=== PATIENT | female | born 1960 | race Hispanic/Latino ===

== ENCOUNTER 2019-09-11 11:00 | Inpatient (IN) | payer OTHER ==
[~2019-09-11] VITALS: Ht 154.9 cm; Wt 74.7 kg
[2019-09-11 10:48] LABS: BASOPHILS % (AUTO) 0.6 % (0.0-5.0); EOSINOPHILS % (AUTO) 2.9 % (0.0-8.0); LYMPHOCYTES % (AUTO) 30.2 % (21.0-51.0); MEAN CORPUSCULAR HEMOGLOBIN 28.9 pg (27.0-33.0); MEAN CORPUSCULAR HGB CONC 32.4 g/dL (32.0-36.0); MEAN CORPUSCULAR VOLUME 89.4 fL (79-99); MONOCYTES % (AUTO) 7.7 % (3.0-13.0); NEUTROPHILS % (AUTO) 58.5 % (40.0-77.0); PLATELET COUNT (AUTO) 231 K/uL (130-400); RED CELL DISTRIBUTION WIDTH 14.1 % (11.0-15.5); WHITE BLOOD COUNT (AUTO) 8.4 K/uL (4.8-10.8)
[2019-09-11 10:49] LABS: APPEARANCE,URINE Clear (CLEAR); BILIRUBIN,URINE Negative (NEGATIVE); COLOR,URINE Yellow (YELLOW); GLUCOSE, URINE (UA) Negative (NEGATIVE); KETONES,URINE Negative (NEGATIVE); LEUKOCYTE ESTERASE ,URINE Negative (NEGATIVE); NITRATE,URINE Negative (NEGATIVE); OCCULT BLOOD,URINE Negative (NEGATIVE); PROTEIN,URINE Negative (NEGATIVE); UROBILINOGEN,URINE 0.2 mg/dL (0.2-1.0)
[2019-09-11 10:57] LABS: CREATININE 0.7 mg/dL (0.5-1.5); POTASSIUM 4.1 mmol/L (3.5-5.1)
[2019-09-11 10:58] LABS: INR 0.89 (0.85-1.15); PROTHROMBIN TIME 9.7 SEC (9.6-11.6)
[2019-09-13 10:46] VITALS: BP 157/94
[2019-09-13] MEDS ORDERED: TYLENOL ARTHRITIS PO (11:10)
[2019-09-13] MEDS ORDERED: IBUP-2784 PO (11:10)
[2019-09-14] VITALS (23 sets, daily range): BP systolic 105–137; BP diastolic 58–74
[2019-09-14] MEDS: CEFAZOLIN SODIUM 1 GM VIAL IVP SCH ×3 (05:00→21:16)
[2019-09-14] MEDS ORDERED: LACTATED RINGERS 1000ML 1,000 ML IV ONE (09:32)
[2019-09-14] MEDS ORDERED: METOCLOPRAMIDE 10 MG/2 ML VIAL ONE (10:30)
[2019-09-14] MEDS ORDERED: KETOROLAC TROMETHAMINE 15MG/ML ONE (10:31)
[2019-09-14] MEDS ORDERED: CELECOXIB 200 MG CAP ONE (10:31)
[2019-09-14] MEDS ORDERED: ACETAMINOPHEN EXTRA STRENGTH 500 MG TABLET ONE (10:31)
[2019-09-14] MEDS ORDERED: TRANEXAMIC ACID 1000MG/10ML ONE ×2 (11:08→16:18)
[2019-09-14] MEDS ORDERED: LIDOCAINE PF 2% 5ML ABBOJECT ONE (11:51)
[2019-09-14] MEDS ORDERED: SUCCINYLCHOLINE CHLORIDE 20 MG/ML 10 ML VIAL ONE ×2 (11:51→11:54)
[2019-09-14] MEDS ORDERED: ROCURONIUM 10MG/1ML SYR 10 MG/ML ML ONE ×2 (11:52→13:38)
[2019-09-14] MEDS ORDERED: MIDAZOLAM HCL 1 MG/ML 2ML VIAL ONE (11:52)
[2019-09-14] MEDS ORDERED: PROPOFOL 10 MG/ML 20ML VIAL IV ONE (11:52)
[2019-09-14] MEDS ORDERED: ROPIVACAINE 0.5% 5MG/ML 30ML IJ ONE (11:54)
[2019-09-14] MEDS ORDERED: SODIUM CHLORIDE 0.9% 10 ML VIAL ONE (12:09)
[2019-09-14] MEDS ORDERED: GLYCOPYRROLATE 1 MG/5 ML SYRINGE ONE (13:09)
[2019-09-14] MEDS ORDERED: CEFAZOLIN SODIUM 1 GM VIAL IRRIG ONE ×2 (13:10)
[2019-09-14] MEDS ORDERED: FENTANYL CITRATE PF 50 MCG/1 ML 2ML VIAL ONE (14:54)
[2019-09-14] MEDS ORDERED: NEOSTIGMINE 5MG/5ML SYR IV ONE (15:03)
[2019-09-14] MEDS ORDERED: ONDANSETRON HCL 4 MG/2 ML VIAL IVP PRN (15:30)
[2019-09-14] MEDS ORDERED: DiphenhydrAMINE HCL 50 MG/ML VIAL IVP PRN (15:30)
[2019-09-14] MEDS ORDERED: OXYCODONE HCL 5 MG TAB PO PRN (15:30)
[2019-09-14] MEDS ORDERED: CALCIUM CARBONATE 500 MG TABLET PO PRN (15:30)
[2019-09-14] MEDS ORDERED: TRAMADOL HCL 50 MG TABLET PO PRN (15:30)
[2019-09-14] MEDS ORDERED: POTASSIUM CHLORIDE 10% ELIXIR 20 MEQ/15 ML UDCUP PO PRN (15:30)
[2019-09-14] MEDS: ACETAMINOPHEN EXTRA STRENGTH 500 MG TABLET PO SCH ×2 (15:30→21:21)
[2019-09-14] MEDS ORDERED: POTASSIUM CHLORIDE 20MEQ/100ML 100 ML IV PRN (15:30)
[2019-09-14] MEDS ORDERED: FERROUS FUMARATE 324 MG TABLET PO PRN (15:30)
[2019-09-14] MEDS ORDERED: TEMAZEPAM 15 MG CAPSULE PO PRN (15:30)
[2019-09-14] MEDS ORDERED: LIDOCAINE HCL-MPF 1% 2ML VIAL IV PRN (15:30)
[2019-09-14] MEDS ORDERED: POTASSIUM CHLORIDE 20 MEQ ERTAB PO PRN (15:30)
[2019-09-14] MEDS ORDERED: MEPERIDINE-PF 25 MG/ML SYG ONE (15:38)
--- NOTE | 2019-09-14 18:27 | NUR ---
cm note met with patient and states resides at home alone, independent with adls and self care. no dme. no services. pt drives. [facility] plan is for pt to go and stay with daughter until she recovers. at or. choice letter obtained. referral faxed to [facility] , spoke to mariola nurse stationary engineer apprentice for [facility] and [facility] can be accepted, however, only if pt agrees to pay for deductible and copays, but they are not sure if she has met them. also referral faxed to [facility], for rigoberto and 3 in 1 [facility]. per dar at [facility] emergency department. will let know when approved. Addendum: 09/14/19 at 1835 by KAJAL WOODRUFF CM Amended: Links added.
--- NOTE | 2019-09-14 20:00 | NUR ---
ACTIVITY SAT PATIENT UP AT BEDSIDE, WITH FEET TOUCHING ON FLOOR, TOLERATED WELL, ENCOURAGE IS PREVIOUSLY TAUGHT WITH MAXIMUM VOLUME INSPIRATION OF 1750, BACK TO BED, BLE SCDS IN PLACE, RIGHT HIP WITH JOSE DRESSING WITH NEGATIVE PRESSURE, IVF INFUSING WELL, CALL [place] AT REACH
[2019-09-14] MEDS: SODIUM CHLORIDE 0.9% 1000ML 1,000 ML IV SCH ×2 (21:16→23:07)
[2019-09-14] MEDS: ASPIRIN 81MG TAB.CHEW PO SCH (21:16)
[2019-09-14] MEDS: PREGABALIN 25 MG CAP PO SCH (21:17)
[2019-09-14] MEDS: CELECOXIB 200 MG CAP PO SCH (21:17)
[2019-09-14] MEDS: FAMOTIDINE 20MG TAB 20 MG TAB PO SCH (21:18)
[2019-09-14] MEDS: OXYCODONE HCL 5 MG TAB PO PRN (21:22)
[2019-09-14] MEDS: KETOROLAC TROMETHAMINE 15MG/ML IV PRN (23:19)
[2019-09-15] MEDS: CEFAZOLIN SODIUM 1 GM VIAL IVP SCH (03:59)
[2019-09-15 04:00] VITALS: BP 118/68
[2019-09-15] MEDS: ACETAMINOPHEN EXTRA STRENGTH 500 MG TABLET PO SCH ×3 (04:34→23:28)
[2019-09-15 05:11] LABS: HEMATOCRIT 27.6 % (36-48); MEAN CORPUSCULAR VOLUME 91.1 fL (79-99); RED BLOOD CELL COUNT(AUTO) 3.03 MIL/uL (4.00-5.50); RED CELL DISTRIBUTION WIDTH 14.3 % (11.0-15.5); WHITE BLOOD COUNT (AUTO) 7.7 K/uL (4.8-10.8)
[2019-09-15 05:28] LABS: CREATININE 0.8 mg/dL (0.5-1.5); POTASSIUM 3.9 mmol/L (3.5-5.1)
[2019-09-15 07:39] VITALS: BP 96/59
[2019-09-15] MEDS: OXYCODONE HCL 5 MG TAB PO PRN ×2 (07:39→19:59)
[2019-09-15] MEDS: CELECOXIB 200 MG CAP PO SCH ×2 (08:44→19:58)
[2019-09-15] MEDS: PREGABALIN 25 MG CAP PO SCH ×2 (08:44→19:58)
[2019-09-15] MEDS: ASPIRIN 81MG TAB.CHEW PO SCH ×2 (08:44→19:58)
[2019-09-15] MEDS: FAMOTIDINE 20MG TAB 20 MG TAB PO SCH ×2 (08:44→19:58)
[2019-09-15] MEDS: POLYETHYLENE GLYCOL 3350 17 GM POWD.PACK PO SCH (08:45)
[2019-09-15] MEDS: SODIUM CHLORIDE 0.9% 1000ML 1,000 ML IV SCH (11:16)
[2019-09-15 11:26] VITALS: BP 98/60
[2019-09-15] MEDS: KETOROLAC TROMETHAMINE 15MG/ML IV PRN (14:33)
[2019-09-15 16:40] VITALS: BP 110/61
[2019-09-15 19:52] VITALS: BP 104/64
[2019-09-15 23:30] VITALS: BP 106/58
[2019-09-16 04:00] VITALS: BP 101/57
[2019-09-16] MEDS: ACETAMINOPHEN EXTRA STRENGTH 500 MG TABLET PO SCH ×3 (06:06→20:21)
[2019-09-16 07:45] VITALS: BP 101/55
[2019-09-16] MEDS: FAMOTIDINE 20MG TAB 20 MG TAB PO SCH ×2 (07:52→20:20)
[2019-09-16] MEDS: CELECOXIB 200 MG CAP PO SCH ×2 (07:52→20:20)
[2019-09-16] MEDS: ASPIRIN 81MG TAB.CHEW PO SCH ×2 (07:52→20:20)
[2019-09-16] MEDS: POLYETHYLENE GLYCOL 3350 17 GM POWD.PACK PO SCH (07:53)
[2019-09-16] MEDS: PREGABALIN 25 MG CAP PO SCH ×2 (09:00→21:00)
[2019-09-16 11:22] VITALS: BP 103/54
[2019-09-16] MEDS: OXYCODONE HCL 5 MG TAB PO PRN (15:51)
[2019-09-16 16:11] VITALS: BP 112/64
[2019-09-16 20:00] VITALS: BP 129/67
[2019-09-16 23:33] VITALS: BP 122/58
[2019-09-17 04:00] VITALS: BP 125/61
[2019-09-17 07:30] VITALS: BP 104/64
[2019-09-17] MEDS: OXYCODONE HCL 5 MG TAB PO PRN (08:15)
[2019-09-17] MEDS ORDERED: HYDR-4457 PO (09:04)
[2019-09-17] MEDS ORDERED: ASPI-1005 PO (09:04)
[2019-09-17] MEDS: CELECOXIB 200 MG CAP PO SCH (09:41)
[2019-09-17] MEDS: FAMOTIDINE 20MG TAB 20 MG TAB PO SCH (09:41)
[2019-09-17] MEDS: ASPIRIN 81MG TAB.CHEW PO SCH (09:42)
[2019-09-17] MEDS: POLYETHYLENE GLYCOL 3350 17 GM POWD.PACK PO SCH (09:42)
[2019-09-17] MEDS: ACETAMINOPHEN EXTRA STRENGTH 500 MG TABLET PO SCH ×2 (09:45→15:30)
[2019-09-17 11:00] VITALS: BP 104/66
[2019-09-17] MEDS: PREGABALIN 25 MG CAP PO SCH (12:07)
[2019-09-17] MEDS ORDERED: BISACODYL 10 MG SUPP.RECT RC PRN (15:30)
[2019-09-17 16:00] VITALS: BP 138/66
--- NOTE | 2019-09-17 16:49 | NUR ---
CM NOTE/[facility] ACCEPTED PER STEVIE PATIENT ACCEPTED TO [facility], WILL NEED RECEIPT FOR COPAY FROM DR. CASTILLO OFFICE. PER MARK AT DR. CASTILLO, RECEIPT TO BE FAXED TO [facility]. RECEIPT RECEIVED, KATHY DIGGS PRIMARY NURSE, TO FAX RECEIPT TO [facility] THEN CALL REPORT. DCP HOME WITH [facility].
--- NOTE | 2019-09-17 18:05 | NUR ---
DISCHARGE PATIENT GIVEN DISCHARGE INSTRUCTIONS VIA TEACH BACK. 20G PIV TO LFA DISCONTINUED, TIP INTACT. INSTRUCTED TO FOLLOW UP WITH DR. CASTILLO ON 10/08/19 AT 0900, CONTINUE HOME MEDS AND PICK RX FROM [facility] FOR NORCO AND ASA. JOSE DRESSING CHANGED AND RADHA TO BE REMOVED ON 09/21/19. REPORT GIVEN TO RADHA RUBIN RN FROM [facility]. PER RADHA, WILL FOLLOW UP WITH PATIENT IN AM FOR PHYSICAL THERAPY INCISION CARE. PATIENT INSTRUCTED ON SHOWERING AND INCISION CARE. PATIENT STABLE AND DENIES ANY PAIN AT THIS TIME. PATIENT WHEELED TO [facility] BY ANNITA GARCIA, DAUGHTER AKILA DOWD AWAITING IN VEHICLE.
== END 2019-09-17 18:20 | disposition home health service (06) | DRG 470 ==
LOC: EDSTATUS 11:00 → DAHIP 09-14 07:30 → 3AH 09-14 16:53
PROVIDERS: ADMIT Orthopaedic Surgery; ATTEND Orthopaedic Surgery
PROC: 0SR90JZ Replacement of Right Hip Joint with Synthetic Substitute, Open Approach (ICD-10-PCS; principal; 2019-09-14 11:54)
PROC: 3E0T3BZ Introduction of Anesthetic Agent into Peripheral Nerves and Plexi, Percutaneous Approach (ICD-10-PCS; 2019-09-14 11:54)
DX: M87.851 Other osteonecrosis, right femur (principal); R26.9 Unspecified abnormalities of gait and mobility; M65.9 Synovitis and tenosynovitis, unspecified; F17.200 Nicotine dependence, unspecified, uncomplicated; Z83.3 Family history of diabetes mellitus
CPT/HCPCS: 36415; 73503; 80048; 81003; 85025; 85027; 85610; 87070; 87076; 87205; 87641; 97039; C1776; G0378; J0330; J0690; J1885; J2001; J2175; J2250; J2704; J2710; J2765; J2795; J3010; J3490; J7030; J7120

== ENCOUNTER 2023-03-16 05:59 | Observation (INO) | payer BC ==
[2023-03-15 12:06] VITALS: BP 143/80; PULSE 77; RESP 16
[2023-03-15 12:08] LABS: BASOPHILS # (AUTO) 0.06 K/uL (0.00-0.20); EOSINOPHILS # (AUTO) 0.12 K/uL (0.00-0.70); HEMATOCRIT 36.7 % (36-48); IMMATURE GRANULOCYTE ABSOLUTE 0.02 K/uL (0-1); LYMPHOCYTES # (AUTO) 2.2 K/uL (1.0-4.8); LYMPHOCYTES % (AUTO) 37.4 % (21.0-51.0); MEAN CORPUSCULAR HEMOGLOBIN 21.6 pg (27.0-33.0); MEAN CORPUSCULAR HGB CONC 29.7 g/dL (32.0-36.0); MEAN CORPUSCULAR VOLUME 72.8 fL (79-99); MONOCYTES # (AUTO) 0.5 K/uL (0.1-1.0); MONOCYTES % (AUTO) 8.2 % (3.0-13.0); NEUTROPHILS % (AUTO) 51.1 % (40.0-77.0); PLATELET COUNT (AUTO) 324 K/uL (130-400); RED BLOOD CELL COUNT(AUTO) 5.04 MIL/uL (4.00-5.50); RED CELL DISTRIBUTION WIDTH 19.1 % (11.0-15.5); WHITE BLOOD COUNT (AUTO) 5.9 K/uL (4.8-10.8)
[2023-03-15 12:22] LABS: APPEARANCE,URINE CLEAR (CLEAR); BILIRUBIN,URINE NEGATIVE (NEGATIVE); COLOR,URINE YELLOW (YELLOW); GLUCOSE, URINE (UA) NEGATIVE (NEGATIVE); KETONES,URINE NEGATIVE (NEGATIVE); LEUKOCYTE ESTERASE ,URINE NEGATIVE Leu/uL (NEGATIVE); NITRATE,URINE NEGATIVE (NEGATIVE); OCCULT BLOOD,URINE NEGATIVE (NEGATIVE); PROTEIN,URINE 10 mg/dL (NEGATIVE); UROBILINOGEN,URINE 0.2 mg/dL (0.2-1.0)
[2023-03-15 12:23] LABS: ADD UA MICROSCOPIC YES
[2023-03-15 12:25] LABS: MUCUS,URINE FEW LPF (None Seen); RBC,URINE 0-1 /HPF (0-1); SQUAMOUS EPITHELIAL CELL,UR MOD /HPF (0-2); WBC,URINE 0-1 /HPF (0-1)
[2023-03-15 12:31] LABS: ALBUMIN 3.7 g/dL (3.5-5.0); CREATININE 0.8 mg/dL (0.5-1.5); POTASSIUM 4.2 mmol/L (3.5-5.1)
[2023-03-15 12:34] LABS: INR < 0.93 (0.85-1.15); PROTHROMBIN TIME 10.3 SEC (9.6-11.6)
[2023-03-15 12:36] LABS: PARTIAL THROMBOPLASTIN TIME 26.8 SEC (26.3-35.5)
[2023-03-16] VITALS (32 sets, daily range): BP systolic 131–172; BP diastolic 53–120; PULSE 66–97; RESP 15–22; O2SAT 97–98
[~2023-03-16] VITALS: Ht 154.9 cm; Wt 75.6 kg
[~2023-03-16 05:59] MED LIST: ACET-2123 PO
[2023-03-16] MEDS ORDERED: LACTATED RINGERS 1000ML 1,000 ML IV ONE (06:16)
[2023-03-16] MEDS ORDERED: CEFAZOLIN SODIUM 2 GM VIAL ONE (06:17)
[2023-03-16] MEDS ORDERED: TRANEXAMIC ACID 1000MG/10ML ONE (06:57)
[2023-03-16] MEDS ORDERED: KETOROLAC 30MG VIAL (30MG/ML) ONE (06:57)
[2023-03-16] MEDS ORDERED: ROPIVACAINE 0.5% 5MG/ML 30ML ONE ×2 (06:58→07:20)
[2023-03-16] MEDS ORDERED: PROPOFOL 10 MG/ML 20ML VIAL IV ONE (07:13)
[2023-03-16] MEDS ORDERED: MIDAZOLAM HCL 1 MG/ML 2ML VIAL ONE (07:13)
[2023-03-16] MEDS ORDERED: DEXAMETHASONE SOD PHOSPHATE 10MG/ML 1ML VIAL ONE (07:13)
[2023-03-16] MEDS ORDERED: LIDOCAINE PF 100MG/5ML (2%) SYRINGE 5ML ONE (07:13)
[2023-03-16] MEDS ORDERED: ONDANSETRON 4MG INJ ONE (07:13)
[2023-03-16] MEDS ORDERED: FENTANYL CITRATE PF 50 MCG/1 ML 2ML VIAL ONE ×4 (07:14→10:36)
[2023-03-16] MEDS ORDERED: ROCURONIUM 10MG/1ML SYR 10 MG/ML ML ONE ×2 (07:14→08:29)
[2023-03-16] MEDS ORDERED: GLYCOPYRROLATE 1 MG/5 ML SYRINGE ONE (07:15)
[2023-03-16] MEDS ORDERED: NEOSTIGMINE METHYLSULFATE 1MG/ML IV ONE (07:16)
[2023-03-16] MEDS ORDERED: PHENYLEPHRINE HCL 10 MG/ML 1ML VIAL IV ONE (07:16)
[2023-03-16] MEDS ORDERED: TRANEXAMIC ACID 1000MG/10ML IV ONE (09:40)
[2023-03-16] MEDS ORDERED: CYCLOBENZAPRINE HCL 10 MG TABLET PO PRN (10:00)
[2023-03-16] MEDS ORDERED: KCL 20 MEQ ERTAB PO PRN (10:00)
[2023-03-16] MEDS ORDERED: POTASSIUM CHLORIDE 20MEQ/100ML 100 ML IV PRN (10:00)
[2023-03-16] MEDS ORDERED: FERROUS FUMARATE 324 MG TABLET PO PRN (10:00)
[2023-03-16] MEDS ORDERED: ONDANSETRON 4MG INJ IVP PRN (10:00)
[2023-03-16] MEDS ORDERED: POTASSIUM CHLORIDE 10% ELIXIR 20 MEQ/15 ML UDCUP PO PRN (10:00)
[2023-03-16] MEDS ORDERED: CALCIUM CARB 500MG PO PRN (10:00)
[2023-03-16] MEDS ORDERED: MEPERIDINE-PF 25 MG/ML SYG ONE ×2 (10:28→10:48)
[2023-03-16] MEDS ORDERED: KETOROLAC 15MG/ML VIAL (15MG/ML) ONE (10:44)
[2023-03-16] MEDS: KETOROLAC 15MG/ML VIAL (15MG/ML) IV SCH ×2 (10:46→18:04)
[2023-03-16] MEDS: GABAPENTIN 100 MG CAPSULE PO SCH ×2 (13:54→20:12)
[2023-03-16] MEDS: HYDROCODONE/ACETAMINOPHEN 5/325 MG TAB PO PRN (13:54)
[2023-03-16] MEDS: 0.9%NACL 1000ML 1,000 ML IV SCH ×2 (13:56→23:25)
[2023-03-16] MEDS: TRAMADOL HCL 50 MG TABLET PO PRN (15:51)
[2023-03-16] MEDS: CEFAZOLIN SODIUM 2 GM VIAL IVPB SCH ×2 (15:52→23:12)
[2023-03-16] MEDS ORDERED: ONDANSETRON 4MG TABLET PO PRN (17:30)
[2023-03-16] MEDS: DOCUSATE SODIUM 100 MG CAP PO SCH (20:12)
[2023-03-17] VITALS (7 sets, daily range): BP systolic 122–155; BP diastolic 56–83; PULSE 76–96; RESP 18–19; O2SAT 98
[2023-03-17] MEDS: TRAMADOL HCL 50 MG TABLET PO PRN (00:10)
[2023-03-17] MEDS: KETOROLAC 15MG/ML VIAL (15MG/ML) IV SCH (02:44)
[2023-03-17 04:16] LABS: HEMATOCRIT 27.3 % (36-48); MEAN CORPUSCULAR HEMOGLOBIN 21.9 pg (27.0-33.0); MEAN CORPUSCULAR HGB CONC 30.4 g/dL (32.0-36.0); RED BLOOD CELL COUNT(AUTO) 3.79 MIL/uL (4.00-5.50); RED CELL DISTRIBUTION WIDTH 18.2 % (11.0-15.5); WHITE BLOOD COUNT (AUTO) 10.4 K/uL (4.8-10.8)
[2023-03-17 04:25] LABS: CREATININE 0.7 mg/dL (0.5-1.5); POTASSIUM 3.8 mmol/L (3.5-5.1)
[2023-03-17] MEDS: 0.9%NACL 1000ML 1,000 ML IV SCH (05:52)
[2023-03-17] MEDS: HYDROCODONE/ACETAMINOPHEN 5/325 MG TAB PO PRN ×2 (06:46→12:27)
[2023-03-17] MEDS: POLYETHYLENE GLYCOL 3350 17 GM POWD.PACK PO SCH (07:53)
[2023-03-17] MEDS: DOCUSATE SODIUM 100 MG CAP PO SCH ×2 (07:53→20:13)
[2023-03-17] MEDS: ASPIRIN 325MG EC TAB PO SCH (07:53)
[2023-03-17] MEDS: GABAPENTIN 100 MG CAPSULE PO SCH ×3 (07:55→20:13)
[2023-03-17] MEDS ORDERED: KETOROLAC 15MG/ML VIAL (15MG/ML) IV PRN (10:00)
[2023-03-18 04:00] VITALS: BP 153/80; PULSE 78; RESP 20
[2023-03-18 07:47] VITALS: BP 150/91; PULSE 85; RESP 14
[2023-03-18] MEDS: POLYETHYLENE GLYCOL 3350 17 GM POWD.PACK PO SCH (09:02)
[2023-03-18] MEDS: DOCUSATE SODIUM 100 MG CAP PO SCH (09:02)
[2023-03-18] MEDS: ASPIRIN 325MG EC TAB PO SCH (09:02)
[2023-03-18] MEDS: HYDROCODONE/ACETAMINOPHEN 5/325 MG TAB PO PRN (09:02)
[2023-03-18] MEDS: GABAPENTIN 100 MG CAPSULE PO SCH ×2 (09:02→13:31)
[2023-03-18 11:12] VITALS: BP 144/74; PULSE 96; RESP 20
[2023-03-18] MEDS ORDERED: LACTULOSE 20 GM/30 ML UDCUP PO ONE (14:30)
[2023-03-18] MEDS ORDERED: ASPI-891 PO (14:48)
[2023-03-18] MEDS ORDERED: GABA100C PO (14:48)
[2023-03-18] MEDS ORDERED: HYDR-4060 PO (14:48)
[2023-03-18] MEDS ORDERED: CYCL-309 PO (14:48)
[2023-03-18] MEDS ORDERED: DOCU50CA15 PO (14:48)
[2023-03-19] MEDS ORDERED: BISACODYL 10 MG SUPP.RECT RC PRN (10:00)
== END 2023-03-18 15:50 ==
LOC: DAH 05:59 → DAHIP 06:00 → 4BH 11:40
PROVIDERS: ADMIT Student in an Organized Health Care Education/Training Program; ATTEND Student in an Organized Health Care Education/Training Program
DX: M17.12 Unilateral primary osteoarthritis, left knee (principal); D62 Acute posthemorrhagic anemia; R26.89 Other abnormalities of gait and mobility; F17.210 Nicotine dependence, cigarettes, uncomplicated; Z79.82 Long term (current) use of aspirin; Z79.899 Other long term (current) drug therapy
CPT/HCPCS: 82040; 80048 ×2; 85025; 85610; 85730; 87088; 84134; 86140; 81001; 36415 ×2; 87641; 64447; 27447; 96365; 96366; 96375; 73560; 97161; 97116 ×5; 97530 ×10; 96376; 85027; G0378 ×49; A4663; J7120 ×2; A4215 ×2; J3010 ×4; J3490 ×3; J1100; J2001; J2250; J2704; J2405; J1885 ×4; J2710; J2175 ×2; J2795 ×2; J2371; J0690 ×3; C1713 ×2; G0168; A4649 ×3; A4930; C1776; A6255; A5120 ×2; A4223; A4222; A4221

== ENCOUNTER 2024-02-06 05:49 | Observation (INO) | payer BC ==
[2024-02-01 13:25] LABS: BASOPHILS # (AUTO) 0.05 K/uL (0.00-0.20); BASOPHILS % (AUTO) 0.9 % (0.0-5.0); EOSINOPHILS # (AUTO) 0.09 K/uL (0.00-0.70); EOSINOPHILS % (AUTO) 1.6 % (0.0-8.0); HEMATOCRIT 39.8 % (36-48); IMMATURE GRANULOCYTE ABSOLUTE 0.01 K/uL (0-1); LYMPHOCYTES # (AUTO) 2.5 K/uL (1.0-4.8); LYMPHOCYTES % (AUTO) 43.8 % (21.0-51.0); MEAN CORPUSCULAR HEMOGLOBIN 27.5 pg (27.0-33.0); MEAN CORPUSCULAR HGB CONC 31.7 g/dL (32.0-36.0); MEAN CORPUSCULAR VOLUME 86.9 fL (79-99); MONOCYTES # (AUTO) 0.4 K/uL (0.1-1.0); MONOCYTES % (AUTO) 7.1 % (3.0-13.0); NEUTROPHILS # (AUTO) 2.6 K/uL (1.8-7.7); NEUTROPHILS % (AUTO) 46.4 % (40.0-77.0); PLATELET COUNT (AUTO) 210 K/uL (130-400); RED BLOOD CELL COUNT(AUTO) 4.58 MIL/uL (4.00-5.50); RED CELL DISTRIBUTION WIDTH 16.9 % (11.0-15.5); WHITE BLOOD COUNT (AUTO) 5.6 K/uL (4.8-10.8)
[2024-02-01 13:34] LABS: ALBUMIN 3.5 g/dL (3.5-5.0); CREATININE 0.8 mg/dL (0.5-1.0)
[2024-02-01 13:39] LABS: INR 0.95 (0.85-1.15); PROTHROMBIN TIME 10.3 SEC (9.6-11.6)
[2024-02-01 13:40] VITALS: BP 173/82; PULSE 52; RESP 16; TEMP 98
[2024-02-01 13:40] LABS: PARTIAL THROMBOPLASTIN TIME 27.8 SEC (26.3-35.5)
[2024-02-01 13:52] LABS: ADD UA MICROSCOPIC YES; APPEARANCE,URINE CLEAR (CLEAR); BILIRUBIN,URINE NEGATIVE (NEGATIVE); COLOR,URINE LIGHT-YELLOW (YELLOW); GLUCOSE, URINE (UA) NEGATIVE (NEGATIVE); KETONES,URINE NEGATIVE (NEGATIVE); LEUKOCYTE ESTERASE ,URINE NEGATIVE Leu/uL (NEGATIVE); NITRATE,URINE NEGATIVE (NEGATIVE); PROTEIN,URINE NEGATIVE (NEGATIVE); UROBILINOGEN,URINE 0.2 mg/dL (0.2-1.0)
[2024-02-01 13:54] LABS: BACTERIA,URINE RARE /HPF (None Seen); SQUAMOUS EPITHELIAL CELL,UR FEW /HPF (0-2)
[~2024-02-06] VITALS: Ht 154.9 cm; Wt 70.5 kg
[2024-02-06] VITALS (26 sets, daily range): BP systolic 123–168; BP diastolic 67–92; PULSE 46–82; RESP 15–20; TEMP 96.7–98.4; O2SAT 99–100
[~2024-02-06 05:49] MED LIST changes: -ACET-2123 PO; +ACET-2743 PO
[2024-02-06] MEDS: LACTATED RINGERS 1000ML 1,000 ML IV ONE (06:55)
[2024-02-06] MEDS ORDERED: rocuRONium bROMide 10MG/1ML 5ML VL ONE (07:00)
[2024-02-06] MEDS ORDERED: LIDOCAINE PF 100MG/5ML (2%) SYRINGE 5ML ONE (07:00)
[2024-02-06] MEDS ORDERED: FENTanyl CITRate PF 50 MCG/1 ML 2ML VIAL ONE ×2 (07:00→07:28)
[2024-02-06] MEDS ORDERED: proPOFol 10 MG/ML 20ML VIAL IV ONE ×2 (07:00→08:12)
[2024-02-06] MEDS ORDERED: dexaMETHasone SOD PHOSPHATE 10MG/ML 1ML VIAL ONE (07:01)
[2024-02-06] MEDS ORDERED: ondanSETRON 4MG INJ ONE (07:01)
[2024-02-06] MEDS: ceFAZolin SODIUM 2 GM VIAL ONE (07:30)
[2024-02-06] MEDS: TRANEXAMIC ACID 1000MG/10ML ONE (07:30)
[2024-02-06] MEDS ORDERED: CALCIUM CARB 500MG PO PRN (09:30)
[2024-02-06] MEDS ORDERED: FERROUS FUMARATE 324 MG TABLET PO PRN (09:30)
[2024-02-06] MEDS ORDERED: PoTASSium chloRIDE 20MEQ/100ML 100 ML IV PRN (09:30)
[2024-02-06] MEDS ORDERED: PoTASSium chloRIDE 20MEQ ER 20 MEQ ERTAB PO PRN (09:30)
[2024-02-06] MEDS ORDERED: HYDROcodone/APAP 5/325 1 TAB TABLET PO PRN ×2 (09:30→10:00)
[2024-02-06] MEDS ORDERED: ondanSETRON 4MG INJ IVP PRN (09:30)
[2024-02-06] MEDS ORDERED: ketOROlac 15MG/ML VIAL (15MG/ML) IV PRN (09:30)
[2024-02-06] MEDS: 0.9%NACL 1000ML 1,000 ML IV SCH (09:30)
[2024-02-06] MEDS ORDERED: PoTASSium chl 10% ELIXIR 20MEQ 20 MEQ/15 ML UDCUP PO PRN (09:30)
[2024-02-06] MEDS: ketOROlac 15MG/ML VIAL (15MG/ML) IV SCH (10:46)
[2024-02-06] MEDS: ketOROlac 15MG/ML VIAL (15MG/ML) ONE (10:46)
[2024-02-06] MEDS: MEPERIDINE-PF 25 MG/ML SYG ONE ×2 (10:47)
[2024-02-06] MEDS: ondanSETRON 4MG INJ ONE (10:47)
[2024-02-06] MEDS ORDERED: hydrALAZine 20MG/ML VIAL IV PRN (11:00)
[2024-02-06] MEDS: traMADol HCL 50 MG TABLET PO PRN (13:47)
[2024-02-06] MEDS: GABApentin 100 MG CAPSULE PO SCH (13:47)
[2024-02-06] MEDS: ceFAZolin SODIUM 2 GM VIAL IVP SCH (13:51)
[2024-02-06] MEDS: doCUSate SODIUM 100 MG CAP PO SCH (20:16)
[2024-02-07] VITALS (8 sets, daily range): BP systolic 125–158; BP diastolic 63–85; PULSE 73–90; RESP 17–20; TEMP 97.9–99.3; O2SAT 98–100
[2024-02-07 04:18] LABS: HEMATOCRIT 29.9 % (36-48); MEAN CORPUSCULAR HEMOGLOBIN 27.2 pg (27.0-33.0); MEAN CORPUSCULAR HGB CONC 32.1 g/dL (32.0-36.0); MEAN CORPUSCULAR VOLUME 84.7 fL (79-99); RED BLOOD CELL COUNT(AUTO) 3.53 MIL/uL (4.00-5.50); RED CELL DISTRIBUTION WIDTH 16.4 % (11.0-15.5); WHITE BLOOD COUNT (AUTO) 11.1 K/uL (4.8-10.8)
[2024-02-07 04:23] LABS: CREATININE 0.8 mg/dL (0.5-1.0)
[2024-02-07] MEDS: CYCLOBENZAPRINE HCL 10 MG TABLET PO PRN (06:04)
[2024-02-07] MEDS: polyETHYLene GLYCol 3350 17 GM POWD.PACK PO SCH (08:39)
[2024-02-07] MEDS: LORATAdine 10 mg 10 MG TABLET PO ONE (08:41)
[2024-02-07] MEDS: ASPIRIN 325MG EC TAB PO SCH (08:41)
[2024-02-07] MEDS: ketOROlac 15MG/ML VIAL (15MG/ML) IV PRN (10:22)
[2024-02-08 03:43] VITALS: BP 131/75; PULSE 88; RESP 18; TEMP 99
[2024-02-08 07:53] VITALS: BP 121/71; PULSE 97; RESP 15; TEMP 98.8
[2024-02-08] MEDS: HYDROcodone/APAP 5/325 1 TAB TABLET PO PRN (08:01)
[2024-02-08 08:06] VITALS: O2SAT 98
[2024-02-08] MEDS ORDERED: GABA100C PO (11:11)
[2024-02-08] MEDS ORDERED: ASPI-891 PO (11:11)
[2024-02-08] MEDS ORDERED: CYCL-309 PO (11:11)
[2024-02-08] MEDS ORDERED: HYDR-4060 PO (11:11)
[2024-02-08] MEDS ORDERED: DOCU-116 PO (11:11)
[2024-02-08 12:00] VITALS: BP 118/69; PULSE 95; RESP 15; TEMP 98.2
[2024-02-08 16:00] VITALS: BP 121/53; PULSE 91; RESP 15; TEMP 98.9
[2024-02-09] MEDS ORDERED: BisaCODYL 10 MG SUPP.RECT RC PRN (09:30)
== END 2024-02-08 16:50 ==
LOC: DAH 05:49 → DAHIP 05:50 → 4BH 11:15
PROVIDERS: ADMIT Student in an Organized Health Care Education/Training Program; ATTEND Student in an Organized Health Care Education/Training Program
DX: M16.12 Unilateral primary osteoarthritis, left hip (principal); D62 Acute posthemorrhagic anemia; Z79.82 Long term (current) use of aspirin; Z79.899 Other long term (current) drug therapy; G89.18 Other acute postprocedural pain
CPT/HCPCS: 82040; 80048 ×2; 85025; 85610; 85730; 87086 ×2; 87186; 84134; 86140; 81001; 36415 ×2; 87641; 64450; 27130; 96374; 96376 ×2; 96375; 73503; 73521; 97161; 97116 ×5; 85027; 97530 ×4; G0378 ×51; A4663; C1776; J7120; J3010 ×2; J3490 ×2; J1100; J2003; J2704 ×2; J2405 ×2; J2175 ×2; J1885 ×4; J0690 ×3; A4649 ×2; A6255; A5120; A4215; A4223 ×2; A4222; A4221; A4216; J7030

== ENCOUNTER 2024-11-16 05:57 | Day surgery (SDC) | payer BC ==
[2024-11-14 10:22] VITALS: BP 147/75; PULSE 65; RESP 18; TEMP 98.1
[2024-11-14 10:25] LABS: IMMATURE GRANULOCYTE ABSOLUTE 0.02 K/uL (0-1); NUCLEATED RED BLOOD CELLS 0.0 % (0.0-0.19); PLATELET COUNT (AUTO) 212 K/uL (130-400); RED BLOOD CELL COUNT(AUTO) 4.62 MIL/uL (4.00-5.50); RED CELL DISTRIBUTION WIDTH 18.6 % (11.0-15.5); WHITE BLOOD COUNT (AUTO) 6.9 K/uL (4.8-10.8)
[2024-11-14 10:32] LABS: CREATININE 0.7 mg/dL (0.5-1.0); GLOMERULAR FILTR. RATE CALC 97.0 mL/min (>90); GLUCOSE,RANDOM 105.0 mg/dL (70-105); SODIUM SERUM 141.0 mmol/L (136-145); UREA NITROGEN, BLOOD 15.0 mg/dL (7-18)
[2024-11-14 10:38] LABS: INR 0.94 (0.85-1.15)
[2024-11-16] VITALS (13 sets, daily range): BP systolic 142–165; BP diastolic 72–90; PULSE 50–84; RESP 15–20; TEMP 97.5–97.8
[~2024-11-16] VITALS: Ht 154.9 cm; Wt 75.5 kg
[~2024-11-16 05:57] MED LIST changes: -ACET-2743 PO; +ACET-3305 PO
[2024-11-16] MEDS: LACTATED RINGERS 1000ML 1,000 ML IV ONE (06:34)
[2024-11-16] MEDS ORDERED: MIDAZOLAM HCL 1 MG/ML 2ML VIAL ONE (07:18)
[2024-11-16] MEDS ORDERED: LIDOCAINE PF 100MG/5ML (2%) SYRINGE 5ML ONE (07:21)
[2024-11-16] MEDS ORDERED: ACET-2079 PO (07:44)
[2024-11-16] MEDS ORDERED: GLYCOPYRROLATE 0.2 MG/ML 5 ML VIAL ONE (08:19)
[2024-11-16] MEDS ORDERED: NEOSTIGMINE METHYLSULFATE 1MG/ML IV ONE (08:19)
[2024-11-16] MEDS ORDERED: SUGAMMADEX SODIUM 200 MG/2 ML VIAL IV ONE (08:29)
--- NOTE | 2024-11-16 08:50 | OP ---
Operative Note: DATE OF PROCEDURE: 11/16/24 SURGEON: GUY NORTON MD BISCUIT MACHINE OPERATOR: Denis He ANESTHESIA: General ANESTHESIOLOGIST/POULTRY EVISCERATOR: Fidel Hunt PREOPERATIVE DIAGNOSIS: Left patellar clunk POSTOPERATIVE DIAGNOSIS: Left patellar clunk FINDINGS: Circumferential hypertrophic synovium seen around the patella with the invagination between the patellar and femoral components. 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 Patient presented to the clinic complaining of painful popping behind her kneecap. We discussed that she may have some soft tissue getting trapped in the notch of her femoral component when she is performing range motion. Recommended arthroscopic debridement. After discussion of the risks, benefits, and alternatives, the patient voluntarily agreed to undergo the aforementioned procedure. DESCRIPTION OF PROCEDURE: Patient was properly identified in the preoperative holding area. Surgical site marking was verified and surgery consent reviewed. The patient was then taken to the operating room and placed in supine position on the OR table. After induction of general anesthesia, preoperative antibiotics were given, all bony prominences were well-padded, and a well padded tourniquet was applied but not inflated at this time. The left lower extremity was then prepped and draped in usual sterile fashion. Surgical timeout was done verifying correct surgery, side, site, and location to be performed. We then began the procedure by making a standard anterolateral portal with an 11 blade and inserted our arthroscope through here. We made our anterior medial portal under direct visualization using spinal needle for localization. We then inserted our probe and performed our diagnostic arthroscopy with the above mentioned findings. At this point, we inserted shaver device and performed our limited synovectomy and debridement. We then swapped portals and inserted the shaver through the lateral portal and further debrided synovial tissue. Once we were happy with our debridement, we then thoroughly irrigated out the wound with normal saline. We removed as much fluid from the knee as possible. We then injected local anesthetic within the capsule of the joint as well as around the portal sites. Our portal sites were then repaired using 3-0 nylon in simple fashion. Sterile dressing was then applied consisting of Xeroform, 4 x 4's, ABD, cast padding, and an Remy wrap. The patient was then awakened from anesthesia and taken to recovery room in stable condition. GUY NORTON MD Nov 16, 2024 08:50
== END 2024-11-16 11:04 | disposition home or self-care (01) ==
LOC: DAH 05:57
PROVIDERS: ATTEND Student in an Organized Health Care Education/Training Program
DX: M25.862 Other specified joint disorders, left knee (principal); M17.12 Unilateral primary osteoarthritis, left knee; R26.89 Other abnormalities of gait and mobility; M25.562 Pain in left knee; M19.90 Unspecified osteoarthritis, unspecified site; Z96.653 Presence of artificial knee joint, bilateral; Z96.643 Presence of artificial hip joint, bilateral; Z79.01 Long term (current) use of anticoagulants; Z79.82 Long term (current) use of aspirin; Z79.899 Other long term (current) drug therapy
CPT/HCPCS: 80048; 85025; 85610; 85730; 36415; 29875; 97161; 97116; 97530 ×2; A4663; A4649 ×2; J7120; J3010; J1100; J0665; J3490 ×2; J2003; J2250; J2704; J2710; J0690; A6223; A5120; A4215; A4223; A4222; A4221; A6450